=== PATIENT | male | born 1990 | race Caucasian/White ===

== ENCOUNTER 2017-12-15 07:20 | Emergency (ER) | payer BC ==
[~2017-12-15] VITALS: Ht 188 cm; Wt 95.7 kg
[~2017-12-15 07:20] MED LIST: FLEXERIL PO; HYDROCODON-ACE1 EAC8 PO
[2017-12-15] MEDS ORDERED: IBUPROFEN 800800 M1 PO (07:34)
[2017-12-15] MEDS ORDERED: TYLENOL325 MG PO (07:34)
[2017-12-15 08:01] LABS: ABSOLUTE LYMPHOCYTES 1.6 thou/uL (0.8-5.3); ABSOLUTE MONOCYTES 0.7 thou/uL (0.0-1.2); ABSOLUTE NEUTROPHILS 6.1 thou/uL (1.6-8.1); BASOPHILS 0.5 %; EOSINOPHILS 0.3 %; HEMATOCRIT 45.9 % (42.0-52.0); HEMOGLOBIN 16.1 gm/dL (14.0-18.0); LYMPHOCYTES 19.2 %; MCV 85.8 fL (80.0-100.0); MONOCYTES 8.2 %; MPV 9.1 fl. (7.2-11.1); NUCLEATED RBCS 0 /100WBC; PLATELET COUNT* 221 thou/uL (150-400); POLYS 71.8 %; RBC 5.35 mil/uL (4.50-6.00); RDW-CV 13.2 % (10.5-14.5); WBC 8.5 thou/uL (4.0-11.0)
[2017-12-15 08:10] LABS: CALCIUM 9.1 mg/dL (8.5-10.1); CREATININE 1.4 mg/dL (0.6-1.3); POTASSIUM 3.8 mmol/L (3.5-5.1)
[2017-12-15 08:14] LABS: ALBUMIN 4.2 g/dL (3.4-5.0); TOTAL PROTEIN 7.2 g/dL (6.4-8.2)
[2017-12-15 08:45] LABS: URINE BILIRUBIN NEGATIVE (Negative); URINE BLOOD 1+ (Negative); URINE CLARITY CLEAR; URINE COLOR YELLOW; URINE GLUCOSE-RANDOM NEGATIVE (Negative); URINE KETONES NEGATIVE (Negative); URINE LEUKOCYTES-REFLEX NEGATIVE (Negative); URINE NITRITE-REFLEX NEGATIVE (Negative); URINE PROTEIN TRACE (Negative); URINE SPECIFIC GRAVITY <= 1.005 (1.005-1.030); URINE UROBILINOGEN 0.2 E.U./dl (0.2-1.0)
[2017-12-15 08:52] LABS: BACTERIA-REFLEX 1-9 Few /HPF (None Seen); CASTS None Seen /LPF (None Seen); CRYSTALS None Seen /LPF (None Seen); MUCUS 0-3 Light strn/LPF (None Seen); SQUAMOUS 0-3 Few /LPF (0-3); URINE RBC 3-10 Few /HPF (0-2); URINE WBC-REFLEX 0-5 Rare /HPF (0-5)
[2017-12-15 09:14] LABS: AMP/METHAMP Negative (Negative); BARBITURATES Negative (Negative); BENZODIAZEPINES Negative (Negative); COCAINE Negative (Negative); METHADONE Negative (Negative); OPIATES Negative (Negative); PCP Negative (Negative); THC Negative (Negative)
[2017-12-15] MEDS ORDERED: ZOFRAN ODT4 MG PO (11:13)
[2017-12-15] MEDS ORDERED: NORCO 5-325 TA1 EACH PO (11:13)
[2017-12-15 11:28] VITALS: BP 125/87
== END 2017-12-15 11:29 | disposition home or self-care (01) ==
LOC: M.ERS 07:20
PROVIDERS: Emergency Medicine Emergency Medical Services
DX: R10.84 Generalized abdominal pain (principal)